=== PATIENT | female | born 1980 | race Caucasian/White ===

== ENCOUNTER 2020-08-16 13:18 | Emergency (ER) | payer OTHER, MEDICAID ==
[~2020-08-16] VITALS: Ht 167.7 cm; Wt 61.2 kg
[2020-08-16] MEDS ORDERED: ACHD5005 PO (13:49)
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
[2020-08-16 14:20] VITALS: BP 129/76
== END 2020-08-16 14:20 | disposition home or self-care (01) ==
LOC: ER 13:20
DX: S22.42XA Multiple fractures of ribs, left side, initial encounter for closed fracture (principal); S01.81XA Laceration without foreign body of other part of head, initial encounter; G51.0 Bell's palsy; R40.2410 Glasgow coma scale score 13-15, unspecified time; V89.2XXA Person injured in unspecified motor-vehicle accident, traffic, initial encounter
CPT/HCPCS: 71101

== ENCOUNTER 2020-08-19 11:18 | Emergency (ER) | payer OTHER, MEDICAID ==
[~2020-08-19] VITALS: Ht 167 cm; Wt 65.0 kg
[2020-08-19 11:18] VITALS: BP 107/72
[~2020-08-19 11:18] MED LIST: ACHD5005 PO
== END 2020-08-19 11:44 | disposition home or self-care (01) ==
LOC: EDUNIT# 11:18 → ER FS 11:21
DX: Z48.02 Encounter for removal of sutures (principal)

== ENCOUNTER 2020-08-21 14:06 | Emergency (ER) | payer OTHER, MEDICAID ==
[~2020-08-21] VITALS: Ht 167 cm; Wt 63.5 kg
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
[2020-08-21] MEDS ORDERED: ACHD5005 PO (14:23)
[2020-08-21] MEDS ORDERED: KETOROLAC 30 MG/ML VIAL IM STA (14:24)
[2020-08-21] MEDS ORDERED: CYCL10TA9 PO (14:26)
[2020-08-21 14:40] VITALS: BP 135/85
== END 2020-08-21 14:40 | disposition home or self-care (01) ==
LOC: EDUNIT# 14:06 → ER FS 14:07
DX: S22.42XA Multiple fractures of ribs, left side, initial encounter for closed fracture (principal); S01.81XA Laceration without foreign body of other part of head, initial encounter; V89.2XXA Person injured in unspecified motor-vehicle accident, traffic, initial encounter
CPT/HCPCS: 99283

== ENCOUNTER → 2021-01-25 | Outpatient (CLI) | payer MEDICAID ==
[~2021-01-25] MED LIST changes: +CYCL10TA25 PO
[2021-01-25 12:55] LABS: HEMATOCRIT 44 % (35-52); HEMOGLOBIN 15.4 g/dL (11.5-16.0); MEAN CORPUSCULAR HEMOGLOBIN 31 pg (25-34); MEAN CORPUSCULAR VOLUME 90 fL (80-99); WHITE BLOOD COUNT 7.2 10^3/uL (4.3-11.0)
[2021-01-25 12:56] LABS: BASOPHILS % (AUTO) 1 % (0-10); EOSINOPHILS # (AUTO) 0.1 10^3/uL (0.0-0.3); EOSINOPHILS % (AUTO) 1 % (0-10); LYMPHOCYTES # (AUTO) 2.1 X 10^3 (1.0-4.0); LYMPHOCYTES % (AUTO) 29 % (12-44); MEAN CORPUSCULAR HGB CONC 35 g/dL (32-36); MEAN PLATELET VOLUME 9.3 fL (9.0-12.2); MONOCYTES # (AUTO) 1.1 X 10^3 (0.0-1.0); MONOCYTES % (AUTO) 15 % (0-12); NEUTROPHILS # (AUTO) 3.9 X 10^3 (1.8-7.8); NEUTROPHILS % (AUTO) 54 % (42-75); PLATELET COUNT 333 10^3/uL (130-400)
[2021-01-25 13:29] LABS: POTASSIUM 4.1 MMOL/L (3.6-5.0)
[2021-01-25 13:30] LABS: ALBUMIN 4.4 GM/DL (3.2-4.5); BILIRUBIN,TOTAL 1.1 MG/DL (0.1-1.0); CALCIUM 9.7 MG/DL (8.5-10.1); CREATININE SERUM 0.71 MG/DL (0.60-1.30); TOTAL PROTEIN 8.1 GM/DL (6.4-8.2)
[2021-01-25 15:32] LABS: FREE T4 (FREE THYROXINE) 1.02 NG/DL (0.70-1.48)
== END ==
LOC: LAB FS 12:28
PROVIDERS: ATTEND Registered Nurse Emergency
DX: Z00.00 Encounter for general adult medical examination without abnormal findings (principal)
CPT/HCPCS: 36415; 80053; 80061; 84439; 84443; 85025

== ENCOUNTER → 2021-11-15 | Outpatient (CLI) | payer MEDICAID | LOC: LABNPT 14:59 | PROVIDERS: ATTEND Registered Nurse Emergency | DX: N76.0 Acute vaginitis (principal) | CPT/HCPCS: 87077; 87088; 87210; 87491; 87591 ==

== ENCOUNTER → 2021-12-08 | Outpatient (CLI) | payer MEDICAID | LOC: LABNPT 15:03 | PROVIDERS: ATTEND Registered Nurse Emergency | DX: N76.6 Ulceration of vulva (principal) | CPT/HCPCS: 87254 ==

== ENCOUNTER → 2021-12-08 | Outpatient (CLI) | payer MEDICAID | LOC: LAB FS 12:00 | PROVIDERS: ATTEND Registered Nurse Emergency | DX: N76.6 Ulceration of vulva (principal) | CPT/HCPCS: 87210 ==

== ENCOUNTER → 2022-09-19 | Outpatient (CLI) | payer MEDICAID | LOC: GIR 15:27 | PROVIDERS: ATTEND Registered Nurse Emergency | DX: Z11.3 Encounter for screening for infections with a predominantly sexual mode of transmission (principal); N89.8 Other specified noninflammatory disorders of vagina | CPT/HCPCS: 87210; 87491 ==